=== PATIENT | female | born 1965 | race Caucasian/White ===

== ENCOUNTER 2024-10-05 23:02 | Emergency (ER) | payer OTHER, SELFPAY ==
[2024-10-05 23:13] VITALS: BP 115/67
[2024-10-06 00:26] VITALS: BMI 21.4
[2024-10-06 01:10] LABS: ALT (SGPT) 200 U/L (0-35); AST (SGOT) 90 U/L (14-36); Albumin 3.8 g/dl (3.5-5.0); Alkaline Phosphatase 184 U/L (38-126); Blood Urea Nitrogen 21 mg/dl (7-17); Calcium 9.5 mg/dl (8.4-10.2); Carbon Dioxide 29 mmol/L (22-30); Chloride 105 mmol/L (98-107); Estimated Creatinine Clearance 80 ml/min; Glucose 101 mg/dl (70-99); Lipase 59 U/L (23-300); Potassium 4.1 mmol/L (3.5-5.1); Sodium 138 mmol/L (135-145); Total Protein 6.3 g/dl (6.3-8.2); eGFR > 60.00
[2024-10-06 01:19] LABS: Hemoglobin 12.2 g/dL (12.0-16.0); Mean Corp Hgb Conc. 33.9 g/dL (33.0-37.0); Mean Corpuscular Hgb 29.3 pg (27.0-31.0); Mean Corpuscular Volume 86.5 fL (81.0-99.0); Mean Platelet Volume 10.7 fL (7.4-10.4); Platelet Count 188 10^3/uL (130-400); Red Blood Cell Count 4.16 10^6/uL (4.20-5.40); Red Cell Dist. Width 12.3 % (11.5-14.5); White Blood Cell Count 5.9 10^3/uL (4.8-10.8)
--- NOTE | 2024-10-06 01:44 | ED.GENMED ---
History of Present Illness
General
Chief Complaint: Abdominal Pain
Source: patient
Exam Limitations: none
Time Seen by Provider: 10/06/24 00:18
History of Present Illness
History of Present Illness:
Patient with 2 hours of right sided mid abdominal pain earlier. Essentially resolved. No vomiting. COVID test positive early in the week with some myalgias and flulike symptoms. No shortness of breath back pain urinary symptoms change in bowels.
Past History
Past History
ED Past Medical History: Psychiatric (depression stopped Cymbalta late July 2016 due to flu like illness-unable to keep down) and Other (Chronic neck issues)
ED Past Surgical History: Tonsilectomy and Other ([place] teeth)
Social History
Tobacco: Non-smoker
Alcohol: None
Personal:
Living: with family
Review of Systems
Review of Systems
All Other Systems: Not applicable
Constitutional: Denies fever or chills
Respiratory: Reports no symptoms
Cardiac: Reports no symptoms
Phy Exam
Physical Exam
Physical Exam:
GENERAL: Alert and oriented in no apparent distress
EYE: Orbits normal.
NECK: Supple
CARDIAC: Regular rate and rhythm without any obvious murmurs.
LUNGS: Clear breath sounds,normal
ABDOMEN: Soft, without focal tenderness or distention
NEUROLOGICAL: Alert and oriented , grossly non-focal
SKIN: Warm and dry, no rash or lesion, no discoloration, skin intact.
MUSCULOSKELETAL: No edema,no deformity.Good color
PSYCH: Normal and appropriate interaction.
Course
Orders/Labs/Results
Orders:
Orders
10/06/24 00:27
CT Abd/pel Without Iv Or Oral Urgent
Comment:
Reason For Exam: Sudden right flank pain
10/06/24 00:30
Complete Blood Count/With Diff Urgent
Comprehensive Metabolic Panel Urgent
Lipase Urgent
10/06/24 01:47
Urinalysis Reflex To Culture Urgent
Date Specimen was Collected: 10/06/24
Time Specimen was Collected: 00:34
Abnormal Lab Results
10/06/24
00:30
RBC 4.16 L 10^6/uL
(4.20-5.40)
Hct 36.0 L %
(37.0-47.0)
MPV 10.7 H fL
(7.4-10.4)
BUN 21 H mg/dl
(7-17)
Glucose 101 H mg/dl
(70-99)
AST 90 H U/L
(14-36)
ALT 200 H U/L
(0-35)
Alkaline Phosphatase 184 H U/L
(38-126)
10/06/24 00:30
10/06/24 00:30
Vital Signs
Initial and Last Documented VS:
Initial Vital Signs
Temp Pulse Resp BP Pulse Ox
98.1 F 74 18 115/67 99
10/05/24 23:13 10/05/24 23:13 10/05/24 23:13 10/05/24 23:13 10/05/24 23:13
Last Documented Vital Signs
Temp Pulse Resp BP Pulse Ox
98.1 F 74 18 115/67 99
10/05/24 23:13 10/05/24 23:13 10/05/24 23:13 10/05/24 23:13 10/05/24 23:13
MDM/Problems Addressed
Differential Diagnosis Includes:
Right mid quadrant pain totally resolved and transient. Differential would include kidney stone biliary colic. Doubt appendicitis. Totally asymptomatic on my exam. Workup in progress.
*Radiology
Radiology exam reviewed: radiology read reviewed (No acute findings. Pulmonary nodule. Ectasia right ureter. Scarring in the lung. Pulmonary nodule.)
*Pulse Oximetry
Patient hypoxic: no
*Critical Care Note
Total Time (30-74mins, 75-104mins- exclusive of procedures): Not Applicable
Update Note
Update Note:
Patient has remained asymptomatic. Copy of CT report given to patient for follow-up. Incidental findings reviewed.
ED Attending Note
-
Portions of this chart may have been created with voice recognition software.� Occasional wrong word or��sound alike� substitutions may have occurred due to the inherent limitations of voice recognition software.
Discharge Plan
Departure
Patient Disposition: Home (Routine Discharge)
Date of Disposition: 10/06/24
Time of Disposition: 02:21
Patient with high blood pressure during this ER visit?: No
Discharge Problem:
Transient right flank pain, Transaminitis, Pulmonary nodule, Scarring of the lung, Recent COVID infection
Instructions: Pulmonary nodule, Abdominal Pain
Prescriptions:
No Action
duloxetine 60 MG capsule,delayed release(DR/EC)
60 mg PO DAILY
Referrals:
Ange Thomas CRNP [Family Provider] - Follow up in 2-3 days
Activity Restrictions/Additional Instructions:
Follow-up your CAT scan with your primary physician including follow-up for the nodule and follow-up for the lung
To consider repeat labs in a couple weeks to recheck your liver enzymes
Interventions
Interventions:
*Risk Screen - Suicide Last Done: 10/05/24 23:13
*General Assessment Last Done: 10/05/24 23:13
*Neglect/Abuse Screening Last Done: 10/05/24 23:13
*ED COVID-19 Vaccine History Last Done: 10/06/24 00:26
AL-Lslqaz-Hytskekrrv Assessment Last Done: 10/06/24 01:12
Discharge Date and Time
Print Language: ANDORRAN
[2024-10-06 01:47] LABS: % Basophils 0.7 % (0-2); % Eosinophils 4.4 % (0-6); % Immature Granulocytes 0.2 % (0-0.5); % Lymphocytes 36.9 % (20.5-51.1); % Monocytes 8.7 % (1.7-9.3); % Neutrophils 49.1 % (42.2-75.2); Absolute Eosinophils 0.3 10^3/uL (0-0.7); Absolute Lymphocytes 2.2 10^3/uL (1.2-3.4); Absolute Monocytes 0.5 10^3/uL (0.1-0.6); Absolute Neutrophils 2.9 10^3/uL (1.4-6.5); Nucleated Red Blood Cells % 0 %
--- NOTE | 2024-10-06 01:54 | EDRN ---
Sent patients urine specimen, patient resting comfortably at this time
[2024-10-06 02:01] LABS: Urine Albumin Negative (Neg - Trace); Urine Bilirubin Negative (Negative); Urine Color Yellow; Urine Glucose Negative (Negative); Urine Ketone Negative (Negative); Urine Leukocyte Negative (Negative); Urine Nitrite Negative (Negative); Urine Occult Blood Negative (Negative); Urine Specific Gravity 1.005 (<1.030); Urine Urobilinogen Negative (Neg - 1+); Urine pH 6.5 (5.0-9.0)
[2024-10-06 02:05] LABS: Urine Character Clear (Clear)
--- NOTE | 2024-10-06 02:16 | EDRN ---
Dr. De La Fuente at bedside going over results, patient resting comfortably
== END 2024-10-06 02:38 | disposition home or self-care (01) ==
LOC: EMR 23:02
PROVIDERS: EMERGENCY PHYSICIAN Emergency Medicine; FAMILY PHYSICIAN Nurse Practitioner
DX: U07.1 COVID-19 (principal); R10.9 Unspecified abdominal pain; M79.10 Myalgia, unspecified site; J98.4 Other disorders of lung; R91.1 Solitary pulmonary nodule; R74.01 Elevation of levels of liver transaminase levels; F32.A Depression, unspecified
CPT/HCPCS: 99284; 74176; 80053; 81003; 83690; 85025